=== PATIENT | male | born 1985 | race African-American/Black ===

== ENCOUNTER 2017-12-05 11:30 | Emergency (ER) | payer OTHER ==
[2017-12-05] MEDS ORDERED: Acetaminophen/HYDROcodone 325-5 MG Tab PO ONE (12:15)
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
--- NOTE | 2017-12-05 13:09 | CR ---
Left shoulder: Three views of the left shoulder were obtained. Elevated clavicle is seen at the acromioclavicular joint compatible with acromioclavicular separation. Uncertain how much of this is chronic versus acute. Glenohumeral joint is normal. No acute fracture or other abnormality is seen. Impression: 1. Acromioclavicular separation as noted above. Diagnostic code #3
== END 2017-12-05 12:50 | disposition home or self-care (01) ==
LOC: JD.ED 11:30
DX: S43.102A Unspecified dislocation of left acromioclavicular joint, initial encounter (principal); F17.210 Nicotine dependence, cigarettes, uncomplicated; W11.XXXA Fall on and from ladder, initial encounter
CPT/HCPCS: 73030; 99283; A9270